=== PATIENT | male | born 1945 | race Caucasian/White ===

== ENCOUNTER → 2023-04-27 17:57 | Outpatient (REF) | payer MEDICARE, OTHER, SELFPAY | LOC: MRI 17:57 | PROVIDERS: ATTENDING PHYSICIAN Physician Assistant Surgical; FAMILY PHYSICIAN Family Medicine | DX: M96.1 Postlaminectomy syndrome, not elsewhere classified (principal); M54.2 Cervicalgia; M54.12 Radiculopathy, cervical region | CPT/HCPCS: 72156; A9575 ==

== ENCOUNTER → 2023-06-28 16:05 | Outpatient (REF) | payer MEDICARE, OTHER, SELFPAY | LOC: HWRAD 16:05 | PROVIDERS: ATTENDING PHYSICIAN Physician Assistant; FAMILY PHYSICIAN Family Medicine | DX: J20.9 Acute bronchitis, unspecified (principal) | CPT/HCPCS: 71046 ==

== ENCOUNTER → 2023-08-10 08:38 | Outpatient (REF) | payer MEDICARE, OTHER, SELFPAY | LOC: RAD 08:38 | PROVIDERS: ATTENDING PHYSICIAN Nurse Practitioner; FAMILY PHYSICIAN Family Medicine | DX: G57.02 Lesion of sciatic nerve, left lower limb (principal); M79.652 Pain in left thigh | CPT/HCPCS: 76882 ==

== ENCOUNTER → 2023-08-11 09:42 | Outpatient (REF) | payer MEDICARE, OTHER, SELFPAY | LOC: RCS 09:42 | PROVIDERS: ATTENDING PHYSICIAN Internal Medicine Cardiovascular Disease; FAMILY PHYSICIAN Family Medicine | DX: R06.02 Shortness of breath (principal); Q22.5 Ebstein's anomaly | CPT/HCPCS: 93306 ==

== ENCOUNTER → 2023-09-06 09:38 | Outpatient (REF) | payer MEDICARE, OTHER, SELFPAY | LOC: RCS 09:38 | PROVIDERS: ATTENDING PHYSICIAN Internal Medicine Cardiovascular Disease; FAMILY PHYSICIAN Family Medicine; REFERRING PHYSICIAN Psychiatry & Neurology Neurology | DX: R06.02 Shortness of breath (principal); Q22.5 Ebstein's anomaly; R53.83 Other fatigue; I45.6 Pre-excitation syndrome | CPT/HCPCS: 93017; 93350 ==

== ENCOUNTER 2023-09-23 08:24 | Day surgery (SDC) | payer MEDICARE, OTHER, SELFPAY ==
[2023-09-23] VITALS (10 sets, daily range): BP systolic 105–146; BP diastolic 64–107; BMI 27.5
[2023-09-23] MEDS: NSS 231 ML IV (09:11)
--- NOTE | 2023-09-23 10:53 | ITS.CL.CATH ---
[facility] - Catheterization
Cardiac Catheterization
Procedure Report:
CARDIAC CATHETERIZATION REPORT
Date of Procedure: 09/23/2023
Referring: Jostin Raymond MD
HEMODYNAMIC DATA
AO: 147/79
LV: 147/15
LEFT VENTRICULOGRAPHY: Normal left ventricular wall motion with EF 59%
CORONARY ANGIOGRAPHY
Dominance: Right
Left Main: Normal
LAD: Normal
Circumflex: Normal small distribution vessel
RCA: Large dominant angiographically normal large distribution vessel
Closure Device: None-the procedure was performed via the right radial artery
Radiation (mGy): 206
DAP (cm2.Gy): 21
Fluoroscopy time: 3.4-minute
CONCLUSIONS
1: Normal left ventricular function with EF 59%
2: Systemic hypertension
3. Normal coronary arteries
Copy to: Jostin Raymond MD, Felipe Blackwell MD
Steve Tran MD, FACC, [facility]
[2023-09-23] MEDS: NSS 1000 IV (11:24)
== END 2023-09-23 13:43 | disposition home or self-care (01) ==
LOC: CATH 08:24
PROVIDERS: ATTENDING PHYSICIAN Internal Medicine Cardiovascular Disease; FAMILY PHYSICIAN Family Medicine; OTHER PHYSICIAN Internal Medicine Cardiovascular Disease
DX: R07.89 Other chest pain (principal); I10 Essential (primary) hypertension; I45.6 Pre-excitation syndrome; Z86.73 Personal history of transient ischemic attack (TIA), and cerebral infarction without residual deficits; R06.02 Shortness of breath; R53.83 Other fatigue; Q24.9 Congenital malformation of heart, unspecified
CPT/HCPCS: 93458; Q9967

== ENCOUNTER → 2023-10-18 20:19 | Outpatient (REF) | payer MEDICARE, OTHER, SELFPAY | LOC: MRI 3T 20:19 | PROVIDERS: ATTENDING PHYSICIAN Specialist; FAMILY PHYSICIAN Family Medicine | DX: G93.41 Metabolic encephalopathy (principal) | CPT/HCPCS: 70551 ==

== ENCOUNTER → 2023-11-01 18:22 | Outpatient (REF) | payer MEDICARE, OTHER, SELFPAY | LOC: MRI 18:22 | PROVIDERS: ATTENDING PHYSICIAN Nurse Practitioner; FAMILY PHYSICIAN Family Medicine | DX: M54.16 Radiculopathy, lumbar region (principal) | CPT/HCPCS: 72158; A9575 ==

== ENCOUNTER → 2023-11-28 12:49 | Emergency (ER) | payer MEDICARE, OTHER, SELFPAY ==
[2023-11-28 12:52] VITALS: BP 148/90; BMI 28.9
--- NOTE | 2023-11-28 12:56 | ED.GENMED ---
History of Present Illness
General
Chief Complaint: Chest Pain
Time Seen by Provider: 11/28/23 12:55
History of Present Illness
History of Present Illness:
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 Describes a chest
discomfort, nonpleuritic, nonradiating. Headache feels like a headband around his skull. He also describes sensation of 'cold face in a hot chest'. No fevers or chills recently.
Past History
Past History
ED Past Medical History: Other (Back pain), Other (Migraines) and Other (Diverticulitis)
ED Past Surgical History: Orthopedic and Other (Hernia repair, bowel resection colostomy)
Social History
Tobacco: Former smoker
Family History
Family History: Negative Early CAD
Review of Systems
Review of Systems
Allergies reviewed?: Yes
All Other Systems: ROS reviewed and negative except as documented in HPI and ROS
Phy Exam
Physical Exam
Physical Exam:
GEN: Well appearing, NAD, WDWN
Eyes: PERRLA, EOMs intact, no scleral icterus
HENT: NCAT, oral mucosa moist
Lungs: CTAB, no wheezes, rales, rhonchi, normal chest wall excursion
Cardiac: RRR, no M/R/G, no peripheral edema. Radial pulses 2+ bilat
Neuro: AO x 3, cranial nerves II through XII grossly intact, no focal deficits to BUE/BLE, normal sensation throughout
MSK: No gross deformity or ecchymosis. No edema. No digital clubbing
Skin: No rashes, petechiae. Normal color, no pallor or jaundice.
Psych: Calm, cooperative, proper hygiene
Scores
Heart Score for Chest Pain Patients
STEMI patient?: No
History: Slightly or Non-Suspicious
ECG: Normal
Age: >/= 65 years
Risk Factors: 1 or 2 Risk Factors
Troponin: </= Normal Limit
Heart Score for Chest Pain Patients: 3
Heart Score Risk: 2.5% MACE over next 6 weeks
Course
Orders/Labs/Results
Orders:
Orders
11/28/23 12:55
ECG [Electrocardiogram (*1)] Urgent
Reason for Study: Chest Pain
EKG- Treatment ONCE
11/28/23 12:56
CR Chest - 2 Views Urgent
Comment:
Reason For Exam: chest pain
11/28/23 13:04
Complete Blood Count/With Diff Urgent
Comprehensive Metabolic Panel Urgent
NT-proBNP Urgent
Troponin I Urgent
11/28/23 14:09
Ketorolac [Toradol] 15 mg IV NOW STA
Metoclopramide [Reglan] 10 mg IV NOW STA
Abnormal Lab Results
11/28/23
13:04
RBC 4.62 L 10^6/uL
(4.70-6.10)
Glucose 135 H mg/dl
(70-99)
11/28/23 13:04
11/28/23 13:04
Vital Signs
Initial and Last Documented VS:
Initial Vital Signs
Temp Pulse Resp BP Pulse Ox
98.6 F 72 16 148/90 100
11/28/23 12:52 11/28/23 12:52 11/28/23 12:52 11/28/23 12:52 11/28/23 12:52
Last Documented Vital Signs
Temp Pulse Resp BP Pulse Ox
98.6 F 67 16 119/72 98
11/28/23 12:52 11/28/23 15:02 11/28/23 15:02 11/28/23 15:02 11/28/23 15:02
MDM/Problems Addressed
MDM/Problems Addressed:
78-year-old male presents with chest pain, shortness of breath, and headache. Initial lab evaluation and EKG are all reassuring. He did undergo a cardiac catheterization in the past 2 months that showed clean coronary arteries. The patient has no
neurologic deficits and no indication for CT of the head. We then treated the patient with IV migraine cocktail with resolution of symptoms and he looked dramatically improved at time of discharge.
Comment
Comment:
Not EKG independently interpreted by me shows normal sinus rhythm at a rate of [address] changes concerning for ischemia
*Critical Care Note
Total Time (30-74mins, 75-104mins- exclusive of procedures): Not Applicable
ED Attending Note
-
Portions of this chart may have been created with voice recognition software.� Occasional wrong word or��sound alike� substitutions may have occurred due to the inherent limitations of voice recognition software.
Discharge Plan
Departure
Patient Disposition: Home (Routine Discharge)
Date of Disposition: 11/28/23
Time of Disposition: 15:37
Patient with high blood pressure during this ER visit?: No
Discharge Problem:
Atypical migraine
Instructions: Migraine in adults
Prescriptions:
No Action
Acidophilus 1 CAP capsule
6 cap PO DAILY
cholecalciferol (vitamin D3) 2,000 UNITS tablet
2,000 unit PO DAILY
albuterol sulfate 1 PUFF HFA aerosol inhaler
1 puff inhalation R Q4HPRN PRN (Reason: WHEEZING)
fluticasone propionate 1 SPRAY spray,suspension
1 spray intranasal DAILYPRN PRN (Reason: ALLERGIES)
Saline Nasal 50 SPRAYS/45 ML aerosol,spray
1 sprays intranasal DAILYPRN PRN (Reason: CONGESTION)
acetaminophen 325 MG tablet
650 mg PO Q4HPRN PRN (Reason: temp greater than 100.4 F) Qty: 0 0RF
diazepam 5 MG tablet
5 mg PO TIDPRN PRN (Reason: neck spasms)
oxycodone 5 MG tablet
5 mg PO Q6HPRN PRN (Reason: neck pain)
montelukast [Singulair] 10 mg Tablet
10 mg PO QPM
atorvastatin 20 mg Tablet
20 mg PO QPM
Referrals:
Felipe Blackwell MD [Family Provider] -
Interventions
Interventions:
*Risk Screen - Suicide Last Done: 11/28/23 12:52
*General Assessment Last Done: 11/28/23 12:52
*Neglect/Abuse Screening Last Done: 11/28/23 12:52
ED- Fall Risk Assessment Last Done: 11/28/23 13:46
*ED COVID-19 Vaccine History Last Done: 11/28/23 12:52
ED- Cardiac Assessment Last Done: 11/28/23 13:46
Discharge Date and Time
Print Language: GUATEMALAN
[2023-11-28 13:00] VITALS: BP 141/96
[2023-11-28 13:16] LABS: % Basophils 0.4 % (0-2); % Immature Granulocytes 0.4 % (0-0.5); % Lymphocytes 28.4 % (20.5-51.1); % Monocytes 6.9 % (1.7-9.3); % Neutrophils 62.9 % (42.2-75.2); Absolute Eosinophils 0.1 10^3/uL (0-0.7); Absolute Lymphocytes 2.1 10^3/uL (1.2-3.4); Absolute Monocytes 0.5 10^3/uL (0.1-0.6); Absolute Neutrophils 4.6 10^3/uL (1.4-6.5); Hematocrit 40.5 % (39.0-52.0); Hemoglobin 13.8 g/dL (13.0-18.0); Mean Corp Hgb Conc. 34.1 g/dL (33.0-37.0); Mean Corpuscular Hgb 29.9 pg (27.0-31.0); Mean Corpuscular Volume 87.7 fL (80.0-94.0); Mean Platelet Volume 9.6 fL (7.4-10.4); Nucleated Red Blood Cells % 0 % (-); Platelet Count 227 10^3/uL (130-400); Red Blood Cell Count 4.62 10^6/uL (4.70-6.10); Red Cell Dist. Width 13.4 % (11.5-14.5); White Blood Cell Count 7.4 10^3/uL (4.8-10.8)
[2023-11-28 13:30] LABS: ALT (SGPT) 27 U/L (0-50); AST (SGOT) 31 U/L (17-59); Albumin 4.3 g/dl (3.5-5.0); Alkaline Phosphatase 60 U/L (38-126); Blood Urea Nitrogen 14 mg/dl (9-20); Calcium 9.5 mg/dl (8.4-10.2); Carbon Dioxide 30 mmol/L (22-30); Chloride 101 mmol/L (98-107); Estimated Creatinine Clearance 70 ml/min; Glucose 135 mg/dl (70-99); Potassium 4.5 mmol/L (3.5-5.1); Sodium 142 mmol/L (135-145); Total Bilirubin 0.4 mg/dl (0.2-1.3); Total Protein 6.7 g/dl (6.3-8.2); eGFR > 60.00
[2023-11-28 13:41] VITALS: BP 131/71
[2023-11-28 13:41] LABS: NT-proBNP 86.7 pg/ml; Troponin I < 0.012 ng/ml
[2023-11-28 14:00] VITALS: BP 135/73
[2023-11-28] MEDS: TORADOL 15 MG IV (14:28)
[2023-11-28] MEDS: REGLAN 10 MG IV (14:28)
[2023-11-28 14:36] VITALS: BP 132/75
[2023-11-28 15:02] VITALS: BP 119/72
== END | disposition home or self-care (01) ==
LOC: EMR 12:49
PROVIDERS: Physician Assistant; EMERGENCY PHYSICIAN Emergency Medicine; FAMILY PHYSICIAN Family Medicine
DX: G43.009 Migraine without aura, not intractable, without status migrainosus (principal); Z87.891 Personal history of nicotine dependence
CPT/HCPCS: 99285; 96374; 96375; 71046; 80053; 83880; 84484; 85025; 93005

== ENCOUNTER → 2024-06-07 13:12 | Outpatient (REF) | payer MEDICARE, OTHER, SELFPAY | LOC: HWRAD 13:12 | PROVIDERS: ATTENDING PHYSICIAN Otolaryngology; FAMILY PHYSICIAN Family Medicine; OTHER PHYSICIAN Internal Medicine; REFERRING PHYSICIAN Internal Medicine Critical Care Medicine | DX: J32.9 Chronic sinusitis, unspecified (principal) | CPT/HCPCS: 70486 ==

== ENCOUNTER → 2024-07-31 11:24 | Outpatient (REF) | payer MEDICARE, OTHER, SELFPAY | LOC: HWRAD 11:24 | PROVIDERS: ATTENDING PHYSICIAN Family Medicine; OTHER PHYSICIAN Chiropractor Sports Physician; REFERRING PHYSICIAN Psychiatry & Neurology Neurology | DX: M25.512 Pain in left shoulder (principal) | CPT/HCPCS: 73000; 73030 ==

== ENCOUNTER → 2024-08-14 14:20 | Outpatient (REF) | payer MEDICARE, OTHER, SELFPAY | LOC: HWRAD 14:20 | PROVIDERS: ATTENDING PHYSICIAN Nurse Practitioner; FAMILY PHYSICIAN Family Medicine | DX: R60.0 Localized edema (principal) | CPT/HCPCS: 93970 ==

== ENCOUNTER → 2024-08-23 08:47 | Outpatient (REF) | payer MEDICARE, OTHER, SELFPAY | LOC: RCS 08:47 | PROVIDERS: ATTENDING PHYSICIAN Internal Medicine Cardiovascular Disease; FAMILY PHYSICIAN Family Medicine; REFERRING PHYSICIAN Internal Medicine Hematology & Oncology | DX: Z98.890 Other specified postprocedural states (principal); Q22.5 Ebstein's anomaly | CPT/HCPCS: 93306 ==

== ENCOUNTER 2024-08-29 12:38 | Emergency (ER) | payer MEDICARE, OTHER, SELFPAY ==
[2024-08-29 12:45] VITALS: BP 152/137
[2024-08-29 12:48] VITALS: BP 152/137
[2024-08-29 13:10] LABS: Hematocrit 40.8 % (39.0-52.0); Hemoglobin 13.8 g/dL (13.0-18.0); Mean Corp Hgb Conc. 33.8 g/dL (33.0-37.0); Mean Corpuscular Volume 93.6 fL (80.0-94.0); Nucleated Red Blood Cells % 0 % (-); Platelet Count 230 10^3/uL (130-400); Red Cell Dist. Width 13.6 % (11.5-14.5)
[2024-08-29 13:33] LABS: ALT (SGPT) 29 U/L (0-50); AST (SGOT) 31 U/L (17-59); Albumin 4.5 g/dl (3.5-5.0); Alkaline Phosphatase 58 U/L (38-126); Blood Urea Nitrogen 16 mg/dl (9-20); Calcium 9.7 mg/dl (8.4-10.2); Carbon Dioxide 30 mmol/L (22-30); Chloride 103 mmol/L (98-107); Glucose 95 mg/dl (70-99); Potassium 4.6 mmol/L (3.5-5.1); Sodium 138 mmol/L (135-145); Total Protein 7.0 g/dl (6.3-8.2); eGFR > 60.00
[2024-08-29 13:37] LABS: Troponin I < 0.012 ng/ml
[2024-08-29 14:00] VITALS: BP 174/94
[2024-08-29 15:00] VITALS: BP 176/142
--- NOTE | 2024-08-29 15:37 | ED.GENMED ---
History of Present Illness
General
Chief Complaint: Head Injury
Time Seen by Provider: 08/29/24 15:02
History of Present Illness
History of Present Illness:
78-year-old male history of intracranial hemorrhage, migraines, cauda equina, arachnoiditis, Gsahn-Pbmqvfhys-Gcwag presenting with diffuse head pressure and warmth specifically in the back of his head started around 10 AM. Patient states that he
was sitting there reading when symptoms started. Patient states that he attempted 'magnetic resonance' which worsened symptoms. Patient states that he always has nonradiating nonpleuritic nonexertional chest tightness with some shortness of breath
but states it got worse. Patient states that head pressure and warmth have improved. Patient denies numbness, weakness or tingling. No visual changes. No fevers. No neck pain. No falls or trauma. Patient is not on blood thinners.
Past History
Past History
ED Past Medical History: Other (Back pain), Other (Migraines) and Other (Diverticulitis)
ED Past Surgical History: Orthopedic and Other (Hernia repair, bowel resection colostomy)
Social History
Tobacco: Former smoker
Family History
Family History: Negative Early CAD
Phy Exam
Physical Exam
Physical Exam:
General: Alert, no acute distress
Head: NCAT
Eyes: clear conjunctiva, PERRLA, EOMI
Neck: supple. FROM
Cardiac: regular rate and rhythm, no murmur
Lungs: clear to auscultation bilaterally. No wheezes, rales, or rhonchi. Speaking full unlabored sentences. No respiratory distress.
Abdomen: soft, nondistended nontender. No rebound or guarding.
MSK: no lower extremity edema bilaterally. Left arm in sling from left clavicle fracture
Skin: warm, dry
Neuro: Alert and oriented x3. Cranial nerves II through XII grossly intact with no focal deficits. Normal finger-nose on right, unable to assess on left secondary to clavicle fracture. 5-5 strength bilateral upper and lower extremities.
Sensation intact throughout. No pronator drift.
Course
Orders/Labs/Results
Orders:
Orders
08/29/24 12:58
Electrocardiogram (*1) Urgent
Reason for Study: Chest Pain
EKG- Treatment ONCE
08/29/24 13:03
Complete Blood Count/With Diff Urgent
Comprehensive Metabolic Panel Urgent
Troponin I Urgent
08/29/24 15:34
CT Head W/o Iv Contrast Urgent
Comment:
Reason For Exam: headache
Abnormal Lab Results
08/29/24
13:03
RBC 4.36 L 10^6/uL
(4.70-6.10)
MCH 31.7 H pg
(27.0-31.0)
Monocytes % 10.5 H %
(1.7-9.3)
08/29/24 13:03
08/29/24 13:03
Vital Signs
Initial and Last Documented VS:
Initial Vital Signs
Temp Pulse Resp BP Pulse Ox
98.1 F 76 20 152/137 97
08/29/24 12:45 08/29/24 12:45 08/29/24 12:45 08/29/24 12:45 08/29/24 12:45
Last Documented Vital Signs
Temp Pulse Resp BP Pulse Ox
98.1 F 79 15 151/137 94
08/29/24 12:45 08/29/24 16:15 08/29/24 16:15 08/29/24 16:00 08/29/24 16:15
MDM/Problems Addressed
Differential Diagnosis Includes:
Migraine, intracranial hemorrhage, NSTEMI, musculoskeletal pain, tension headache
MDM/Problems Addressed:
Results reviewed. Hemoglobin, electrolytes, creatinine, troponin within normal limits. Low suspicion for NSTEMI/ACS given symptoms chronically ongoing, unchanged in character, negative troponin/nonischemic ekg. CT head shows no acute intracranial
abnormality.
On reevaluation, patient states that he feels better than earlier today. Discussed results with patient at bedside. Stable for discharge home with PCP/neurology follow-up
*Pulse Oximetry
SaO2: 97
Oxygen Mode of Delivery: Room air
Patient hypoxic: no
*EKG
Interpreted by ED Provider?: Yes (EKG shows NSR at 73bpm with UT 152 QTc 420 no acute ischemic changes)
*Critical Care Note
Total Time (30-74mins, 75-104mins- exclusive of procedures): Not Applicable
ED Attending Note
-
Portions of this chart may have been created with voice recognition software.� Occasional wrong word or��sound alike� substitutions may have occurred due to the inherent limitations of voice recognition software.
Discharge Plan
Departure
Patient Disposition: Home (Routine Discharge)
Date of Disposition: 08/29/24
Time of Disposition: 18:04
Patient with high blood pressure during this ER visit?: Yes
Discharge Problem:
Headache
Instructions: Headaches in adults, BLOOD PRESSURE
Prescriptions:
No Action
Acidophilus 1 CAP capsule
6 cap PO DAILY
cholecalciferol (vitamin D3) 2,000 UNITS tablet
2,000 unit PO DAILY
albuterol sulfate 1 PUFF HFA aerosol inhaler
1 puff inhalation R Q4HPRN PRN (Reason: WHEEZING)
fluticasone propionate 1 SPRAY spray,suspension
1 spray intranasal DAILYPRN PRN (Reason: ALLERGIES)
Saline Nasal 50 SPRAYS/45 ML aerosol,spray
1 sprays intranasal DAILYPRN PRN (Reason: CONGESTION)
acetaminophen 325 MG tablet
650 mg PO Q4HPRN PRN (Reason: temp greater than 100.4 F) Qty: 0 0RF
diazepam 5 MG tablet
5 mg PO TIDPRN PRN (Reason: neck spasms)
oxycodone 5 MG tablet
5 mg PO Q6HPRN PRN (Reason: neck pain)
montelukast [Singulair] 10 mg Tablet
10 mg PO QPM
atorvastatin 20 mg Tablet
20 mg PO QPM
Referrals:
Felipe Blackwell MD [Family Provider, [facility]]
Activity Restrictions/Additional Instructions:
Follow-up with primary care doctor and your neurologist
Take Tylenol 975 mg every 6 hours as needed for pain
Return to the emergency department for focal weakness, slurred speech or new/worsening symptoms
Interventions
Interventions:
*Risk Screen - Suicide Last Done: 08/29/24 12:45
*General Assessment Last Done: 08/29/24 12:45
*Neglect/Abuse Screening Last Done: 08/29/24 12:45
*ED COVID-19 Vaccine History Last Done: 08/29/24 14:00
*Nursing Disposition Last Done: 08/29/24 18:26
ED- Neurological Assessment Last Done: 08/29/24 14:00
ED-Skin Assessment Last Done: 08/29/24 14:00
Discharge Date and Time
Discharge Date/Time: 08/29/24 18:27
Print Language: TAIWANESE
[2024-08-29 16:00] VITALS: BP 151/137
== END 2024-08-29 18:27 | disposition home or self-care (01) ==
LOC: EMR 12:38
PROVIDERS: Emergency Medicine; EMERGENCY PHYSICIAN Emergency Medicine; FAMILY PHYSICIAN Family Medicine
DX: R51.9 Headache, unspecified (principal); R07.89 Other chest pain; R06.02 Shortness of breath; R03.0 Elevated blood-pressure reading, without diagnosis of hypertension; I45.6 Pre-excitation syndrome; K57.92 Diverticulitis of intestine, part unspecified, without perforation or abscess without bleeding; Z98.0 Intestinal bypass and anastomosis status; Z87.891 Personal history of nicotine dependence; Z88.8 Allergy status to other drugs, medicaments and biological substances; Z91.048 Other nonmedicinal substance allergy status
CPT/HCPCS: 99283; 70450; 80053; 84484; 85025; 93005

== ENCOUNTER → 2024-10-05 07:39 | Outpatient (REF) | payer MEDICARE, OTHER, SELFPAY | LOC: RAD 07:39 | PROVIDERS: ATTENDING PHYSICIAN Nurse Practitioner; FAMILY PHYSICIAN Family Medicine | DX: R60.0 Localized edema (principal); R20.8 Other disturbances of skin sensation | CPT/HCPCS: 93922; 93925 ==

== ENCOUNTER → 2024-10-12 07:40 | Outpatient (REF) | payer MEDICARE, OTHER, SELFPAY | LOC: WOUND 07:40 | PROVIDERS: ATTENDING PHYSICIAN Surgery; FAMILY PHYSICIAN Family Medicine | DX: L97.529 Non-pressure chronic ulcer of other part of left foot with unspecified severity (principal); I45.6 Pre-excitation syndrome; F45.8 Other somatoform disorders | CPT/HCPCS: 99203 ==

== ENCOUNTER → 2024-12-18 17:27 | Outpatient (REF) | payer MEDICARE, OTHER, SELFPAY | LOC: PAVMRI 17:27 | PROVIDERS: ATTENDING PHYSICIAN Physician Assistant; FAMILY PHYSICIAN Family Medicine | DX: M54.12 Radiculopathy, cervical region (principal); M43.22 Fusion of spine, cervical region; Z91.81 History of falling; Z98.1 Arthrodesis status; M54.16 Radiculopathy, lumbar region | CPT/HCPCS: 72141 ==

== ENCOUNTER → 2025-01-01 16:36 | Outpatient (REF) | payer MEDICARE, OTHER, SELFPAY | LOC: PAVMRI 16:36 | PROVIDERS: ATTENDING PHYSICIAN Physician Assistant; FAMILY PHYSICIAN Family Medicine | DX: M54.16 Radiculopathy, lumbar region (principal); Z98.1 Arthrodesis status; Z91.81 History of falling | CPT/HCPCS: 72148 ==

== ENCOUNTER → 2025-02-09 06:58 | Outpatient (REF) | payer MEDICARE, OTHER, SELFPAY | LOC: MRI 06:58 | PROVIDERS: ATTENDING PHYSICIAN Physician Assistant Surgical; FAMILY PHYSICIAN Family Medicine; REFERRING PHYSICIAN Specialist | DX: R51.9 Headache, unspecified (principal) | CPT/HCPCS: 70551 ==

== ENCOUNTER 2025-02-13 06:49 | Outpatient (RCR) | payer MEDICARE, OTHER, SELFPAY | END 2025-02-13 23:59 | disposition home or self-care (01) | LOC: RPT 06:49 | PROVIDERS: ATTENDING PHYSICIAN Nurse Practitioner Gerontology; FAMILY PHYSICIAN Family Medicine | DX: I89.0 Lymphedema, not elsewhere classified (principal); Z73.6 Limitation of activities due to disability; R26.2 Difficulty in walking, not elsewhere classified; R26.89 Other abnormalities of gait and mobility | CPT/HCPCS: 97162; 97530; 97760 ==

== ENCOUNTER → 2025-02-15 20:22 | Outpatient (REF) | payer MEDICARE, OTHER, SELFPAY | LOC: MRI 20:22 | PROVIDERS: ATTENDING PHYSICIAN Physician Assistant; FAMILY PHYSICIAN Family Medicine | DX: M54.14 Radiculopathy, thoracic region (principal) | CPT/HCPCS: 72146 ==

== ENCOUNTER → 2025-02-26 12:53 | Outpatient (REF) | payer MEDICARE, OTHER, SELFPAY | LOC: RAD 12:53 | PROVIDERS: ATTENDING PHYSICIAN Specialist; FAMILY PHYSICIAN Family Medicine | DX: G45.3 Amaurosis fugax (principal); G31.84 Mild cognitive impairment of uncertain or unknown etiology | CPT/HCPCS: 93880 ==